=== PATIENT | male | born 1965 | race Caucasian/White ===

== ENCOUNTER → 2016-10-10 | Outpatient (CLI) | payer MEDICAID | LOC: OD 14:37 | PROVIDERS: ATTEND Family Medicine | DX: R05 Cough (principal); R10.9 Unspecified abdominal pain | CPT/HCPCS: 71020; 74000 ==

== ENCOUNTER 2016-10-30 11:17 | Day surgery (SDC) | payer MEDICAID ==
[~2016-10-30 11:17] MED LIST: DIPHENHYDRAMINE HCL 50 MG/ML VIAL ONE; NALOXONE HCL INJ/PF 0.4 MG/1 ML SDV ONE; ONDANSETRON HCL INJ/PF 4 MG/2 ML SDV ONE; PROMETHAZINE HCL INJ 25 MG/1 ML VIAL ONE
[2016-10-30] MEDS ORDERED: FENTANYL CITRATE INJ/PF 100 MCG/2 ML AMPUL ONE (11:18)
[2016-10-30] MEDS ORDERED: FLUMAZENIL INJ 0.5 MG/5 ML VIAL IV ONE (11:18)
[2016-10-30] MEDS ORDERED: EPINEPHRINE INJ 1 MG/10 ML DISP.SYRIN ONE (11:19)
[2016-10-30] MEDS ORDERED: GLUCAGON,HUMAN RECOMB 1 MG INJ ONE (11:19)
[2016-10-30] MEDS: MIDAZOLAM 2 MG/2 ML INJ ONE ×3 (12:22→12:33)
[2016-10-30 13:42] VITALS: BP 118/78
--- NOTE | 2016-10-30 14:27 | Operative Report ---
Operative Report DATE OF SURGERY: 10/30/16 Operative Report: The risks benefits and alternatives of the procedure explained to the patient in detail and informed consent is obtained that GIF Olympus video scope was inserted into the patient's mouth and hypopharynx the esophagus is identified intubated and insufflated the scope was then advanced through the esophagus stomach and duodenum retroflexion maneuver is done the esophagus stomach and first and second portions of the duodenum examined PREOPERATIVE DIAGNOSIS: Epigastric pain rule out peptic ulcer disease POSTOPERATIVE DIAGNOSIS: Esophagitis versus Mcmillan's status post biopsy. 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 Hiatal hernia. Gastritis status post biopsy rule out Helicobacter pylori OPERATION: EGD with ablation. EGD with biopsy SURGEON: BRADLEY CARRERO ANESTHESIA: Moderate Sedation - 5 mg of Versed, 100 g of fentanyl. TISSUE REMOVED OR ALTERED: Gastric specimens obtained. Esophageal specimens obtained COMPLICATIONS: None. ESTIMATED BLOOD LOSS: none. INTRAOPERATIVE FINDINGS: As described above. No ulcers noted. First and second portions of the duodenum normal. PROCEDURE: Patient tolerated the procedure well. No immediate postprocedure complications are noted. Patient is discharged in good condition. Discharge date 10/30/2015. Discharge diet: Regular. Discharge activity: Regular. 2-3 week follow-up to discuss findings. We'll await on biopsies. Patient is instructed to call the office or proceed to the emergency room should there be any further problems or questions. He will need surveillance colonoscopy in 6-8 weeks to document eradication of his Mcmillan's.
== END 2016-10-30 13:44 | disposition home or self-care (01) ==
LOC: END 11:17
PROVIDERS: ATTEND Internal Medicine Gastroenterology
PROC: 0DB68ZX Excision of Stomach, Via Natural or Artificial Opening Endoscopic, Diagnostic (ICD-10-PCS; principal; 2016-10-30 12:00)
PROC: 0DB58ZX Excision of Esophagus, Via Natural or Artificial Opening Endoscopic, Diagnostic (ICD-10-PCS; 2016-10-30 12:00)
DX: K29.50 Unspecified chronic gastritis without bleeding (principal); K22.719 Barrett's esophagus with dysplasia, unspecified; K44.9 Diaphragmatic hernia without obstruction or gangrene; K20.9 Esophagitis, unspecified; F17.210 Nicotine dependence, cigarettes, uncomplicated; Z79.899 Other long term (current) drug therapy
CPT/HCPCS: 43270; 43239; 88305 ×2; J2250; J3010; J0171; J1200; J1610; J2310; J2405; J2550; J3490

== ENCOUNTER 2017-04-30 07:58 | Day surgery (SDC) | payer MEDICAID ==
[~2017-04-30 07:58] MED LIST changes: +EPINEPHRINE INJ 1 MG/10 ML DISP.SYRIN ONE; +FLUMAZENIL INJ 0.5 MG/5 ML VIAL IV ONE; +GLUCAGON,HUMAN RECOMB 1 MG INJ ONE; +MIDAZOLAM 2 MG/2 ML INJ ONE; -PROMETHAZINE HCL INJ 25 MG/1 ML VIAL ONE
[2017-04-30] MEDS: MIDAZOLAM 2 MG/2 ML INJ ONE ×2 (08:22→08:26)
[2017-04-30] MEDS: FENTANYL CITRATE INJ/PF 100 MCG/2 ML AMPUL ONE ×2 (08:24→08:28)
--- NOTE | 2017-04-30 08:35 | Operative Report ---
Operative Report DATE OF SURGERY: 04/30/17 Operative Report: The risks benefits and alternatives of the procedure explained to the patient in detail and informed consent is obtained.A GIF Olympus video scope was inserted into the patient's mouth and hypopharynx, the esophagus is identified intubated and insufflated, the scope was then advanced through the esophagus stomach and duodenum, retroflexion maneuver is done, the esophagus stomach and first and second portions of the duodenum examined PREOPERATIVE DIAGNOSIS: History of Mcmillan's esophagus for reevaluation for possible ablation POSTOPERATIVE DIAGNOSIS: Mcmillan's has resolved. Gastritis status post biopsy rule out Helicobacter pylori OPERATION: EGD with biopsy SURGEON: BRADLEY CARRERO ANESTHESIA: Moderate Sedation - 4 mg of Versed, 100 mcg of fentanyl. Conscious sedation monitoring time 30 minutes. TISSUE REMOVED OR ALTERED: Gastric mucosal specimen obtained to rule out Helicobacter pylori COMPLICATIONS: None. ESTIMATED BLOOD LOSS: None. INTRAOPERATIVE FINDINGS: As described above. PROCEDURE: Patient tolerated procedure well. No immediate postprocedure complications are noted. Patient discharged in good condition. Discharge date 04/30/2017. Discharge diet: Regular. Discharge activity: Regular. 2-3 week follow-up to discuss findings. Need to continue his PPI. We will wait on biopsy. Patient is instructed to call the office or proceed to the emergency room should there be any further problems or questions.
[2017-04-30 12:12] VITALS: BP 114/75
== END 2017-04-30 09:50 | disposition home or self-care (01) ==
LOC: END 07:58
PROVIDERS: ATTEND Internal Medicine Gastroenterology
PROC: 0DB68ZX Excision of Stomach, Via Natural or Artificial Opening Endoscopic, Diagnostic (ICD-10-PCS; principal; 2017-04-30 08:30)
DX: K29.70 Gastritis, unspecified, without bleeding (principal); Z09 Encounter for follow-up examination after completed treatment for conditions other than malignant neoplasm; Z87.19 Personal history of other diseases of the digestive system
CPT/HCPCS: 43239; 88342 ×2; 88305 ×2; J2250; J3010; J0171; J1200; J1610; J2310; J2405; J3490